=== PATIENT | male | born 1970 | race American Indian/Alaskan Native ===

== ENCOUNTER 2021-06-13 11:31 | Emergency (ER) | payer OTHER ==
[2021-06-13 11:53] VITALS: BP 139/81
[2021-06-13] MEDS ORDERED: TETANUS,DIPH,PERTUSS(ACELL) VACCINE 0.5 ML SYRINGE IM ONE (12:46)
[2021-06-13] MEDS ORDERED: LIDOCAINE (1%) 10 MG/1 ML VIAL 20 ML MDV INFILTRATI ONE (12:46)
[2021-06-13] MEDS ORDERED: oxyCODONE /ACETAMINOPHEN 5-325MG TAB PO ONE (12:46)
--- NOTE | 2021-06-13 12:52 | Emergency Department Report ---
ED General Adult HPI - General Chief complaint: Fall Stated complaint: FACIAL LAC Time Seen by Provider: 06/13/21 12:40 Source: patient Mode of arrival: Ambulatory Limitations: No Limitations - History of Present Illness Initial comments: 51-year-old male presents for evaluation of facial injury. The patient states that he was working outside when he lost his balance and fell forward striking his face on concrete, no blood thinners, did not lose consciousness, reports pain to the nose as well as epistaxis. Also reports small laceration to the lower lip. States that he scraped his knee but that is not bothering him. Injury is severe nothing makes better or worse. Tetanus is not up-to-date. - Related Data Allergies Allergy/AdvReac Type Severity Reaction Status Date / Time No Known Allergies Allergy Unverified 06/13/21 11:49 ED Review of Systems ROS: Stated complaint: FACIAL LAC Other details as noted in HPI Comment: All other systems reviewed and negative ED Past Medical Hx - Past Medical History Previous Medical History?: No - Surgical History Past Surgical History?: No ED Physical Exam - General Limitations: No Limitations General appearance: alert, in no apparent distress - Head Head exam: Present: atraumatic, normocephalic - Eye Eye exam: Present: normal appearance - ENT ENT exam: Present: mucous membranes moist, other (Significant soft tissue laceration over the entire nose, somewhat jagged vertical in orientation measuring about 4 cm, there is also a laceration noted above the chin that does extend through this measures about 1 cm, abrasion to the forehead) - Neck Neck exam: Present: normal inspection - Respiratory Respiratory exam: Present: normal lung sounds bilaterally. Absent: respiratory distress - Cardiovascular Cardiovascular Exam: Present: regular rate, normal rhythm. Absent: systolic murmur, diastolic murmur, rubs, gallop - GI/Abdominal GI/Abdominal exam: Present: soft, normal bowel sounds - Rectal Rectal exam: Present: deferred - Extremities Exam Extremities exam: Present: normal inspection - Back Exam Back exam: Present: normal inspection - Neurological Exam Neurological exam: Present: alert, oriented X3 - Psychiatric Psychiatric exam: Present: normal affect, normal mood - Skin Skin exam: Present: warm, dry, intact, normal color. Absent: rash ED Course Vital Signs 06/13/21 06/13/21 11:49 13:35 Temperature 97.7 F Pulse Rate 106 H Respiratory 18 16 Rate Blood Pressure 139/81 [Right] O2 Sat by Pulse 99 Oximetry ED Medical Decision Making - Radiology Data Radiology results: report reviewed Buckle nasal septum fracture, medial minimally displaced nasal bone fractures otherwise normal head CT facial bone CT and cervical spine CT - Medical Decision Making Patient presents after a fall when losing his balance outside landing on concrete. On exam there is an abrasion to the forehead, significant soft tissue laceration over the nose vertically, jagged as well as a small laceration above the chin that does extend through to the mucous membrane. No definite septal hematoma is noted. Will check CT head cervical spine and facial bones, repair small lower facial laceration and then reassess larger nasal laceration after CT. Tetanus updated, Percocet given for pain. CT head negative, CT cervical spine negative, CT facial bones shows buckle fracture of the nasal septum as well as minimally displaced medial nasal bone fractures. Given the extent of the laceration this is an open fracture and I have discussed with [facility], Dr. Akins of trauma service has accepted the patient for transfer. Updated patient on plan. - Differential Diagnosis Contusion, fracture, laceration Critical care attestation.: If time is entered above; I have spent that time in minutes in the direct care of this critically ill patient, excluding procedure time. ED Disposition Clinical Impression: Facial laceration Qualifiers: Encounter type: initial encounter Qualified Code(s): S01.81XA - Laceration without foreign body of other part of head, initial encounter Nasal septum fracture Qualifiers: Encounter type: initial encounter Fracture type: open Qualified Code(s): S02.2XXB - Fracture of nasal bones, initial encounter for open fracture Nasal bone fracture Qualifiers: Encounter type: initial encounter Fracture type: open Qualified Code(s): S02.2XXB - Fracture of nasal bones, initial encounter for open fracture Disposition: [id number]/TX-[id number] ANOTHER TYPE HLTHCARE Is pt being admited?: No Condition: Stable Instructions: Nasal Fracture, [id number], Laceration Care, Adult Time of Disposition: 14:44
--- NOTE | 2021-06-13 13:40 | Cat Scan Report ---
CT head/brain wo con INDICATION / CLINICAL INFORMATION: 51 years Male; trauma, Laceration . TECHNIQUE: Routine CT head without contrast. All CT scans at this location are performed using CT dos e reduction for ALARA by means of automated exposure control. COMPARISON: None. FINDINGS: BRAIN / INTRACRANIAL CONTENTS: No acute hemorrhage, mass effect, midline shift, hydrocephalus, or acu te, large territorial infarct. No signs of significant atrophy or chronic infarct. No significant whi te matter abnormality seen. CRANIOCERVICAL JUNCTION: No significant abnormality. ORBITS: No significant abnormality of visualized orbits. SINUSES / MASTOIDS: There is dehiscence of lamina papyracea, which should be of no clinical significa nce. Mild mucosal thickening seen in the left maxillary antrum. There may be a slight nasal septal fracture-see report from CT facial bones, performed same day. ADDITIONAL FINDINGS: None. IMPRESSION: 1. No focal mass, intracranial hemorrhage, hydrocephalus, or acute, large territorial infarct. Signer Name: Yoandy Troncoso MD, III Signed: 06/13/2021 1:36 PM Workstation Name: [id number]
--- NOTE | 2021-06-13 13:44 | Cat Scan Report ---
. CT facial bones wo con INDICATION / CLINICAL INFORMATION: 51 years Male; trauma, Laceration . TECHNIQUE: Thin cut axial images obtained. Sagittal and coronal reconstructions performed. All CT scans at this location are performed using CT dose reduction for ALARA by means of automated exposure control. COMPARISON: None available. FINDINGS: Vertically oriented, buckle type fracture of the nasal septum is seen. This finding is approximately 3 cm posterior to the nasal bones. There is partial opacification of the left nasal airway, presumabl y related to blood products from this finding. Slight nasal bone fractures suggested medially with only minimal displacement. Subcutaneous soft tissue swelling is seen in the nasal bridge region. There is mild nasal septum deviation-convexity towards the left inferiorly. Portion of this finding c ould be related to the nasal buckle fracture. There is mild mucosal thickening in the ethmoids. Small mucous retention cyst/polyp seen in the left maxillary antrum. IMPRESSION: 1. Mild nasal fractures as described above. Signer Name: Yoandy Troncoso MD, III Signed: 06/13/2021 1:40 PM Workstation Name: [id number]
--- NOTE | 2021-06-13 13:48 | Cat Scan Report ---
CT cervical spine wo con INDICATION / CLINICAL INFORMATION: 51 years Male; trauma, Laceration . TECHNIQUE: Axial CT images of the cervical spine were obtained. Sagittal and coronal reformatted images were pr oduced. All CT scans at this location are performed using CT dose reduction for ALARA by means of aut omated exposure control. COMPARISON: None available. FINDINGS: POST-SURGICAL CHANGES: None. ALIGNMENT: Straightening of the cervical spine noted, which may be related to patient positioning. VERTEBRAE: No signs of fracture. Vertebral bodies are grossly normal in height throughout. Significant osseous foraminal narrowing seen bilaterally at C6-7 from uncinate hypertrophy. INTRAVERTEBRAL DISCS: Mild disc space narrowing seen at multiple levels, with most marked findings at C6-7. There is mild disc disease at various levels. No definitive signs of significant canal stenosi s appreciated, although streak artifact from patient's shoulders partially obscures the cord below th e C5 level. PARASPINAL SOFT TISSUES: No significant abnormality. ADDITIONAL FINDINGS: There may be a very small internal laryngocele on the right, most likely of no c linical significance. IMPRESSION: 1. No signs of acute bony trauma to the cervical spine. Signer Name: Yoandy Troncoso MD, III Signed: 06/13/2021 1:44 PM Workstation Name: [id number]
== END 2021-06-13 15:55 | disposition other institution (70) ==
LOC: ED 11:31
DX: S01.81XA Laceration without foreign body of other part of head, initial encounter (principal); S02.2XXA Fracture of nasal bones, initial encounter for closed fracture; S02.2XXB Fracture of nasal bones, initial encounter for open fracture; W19.XXXA Unspecified fall, initial encounter; Y93.89 Activity, other specified; Y92.89 Other specified places as the place of occurrence of the external cause; Y99.8 Other external cause status
CPT/HCPCS: 12051; 70450; 70486; 72125; 90471; 90715; 99284; J0690